=== PATIENT | female | born 1995 | race Caucasian/White ===

== ENCOUNTER 2020-07-22 12:37 | Emergency (ER) | payer OTHER, BC ==
[2020-07-22] MEDS ORDERED: NEURONTIN100 M1 (12:46)
[2020-07-22 13:04] LABS: BASO # 0.02 (0.02-0.10); EOS # 0.17 (0.04-0.40); EOS % 1.5 % (1.0-5.0); HEMATOCRIT 40.6 % (37.0-47.0); HEMOGLOBIN 13.2 g/dL (12.5-16.0); LYMPH# 1.87 (1.50-4.00); MEAN CELL VOLUME 82 fl (78-100); MEAN CORPUSCULAR HEMOGLOBIN 27 pg (27-31); MEAN CORPUSCULAR HGB CONC 33 g/dL (33-37); MEAN PLATELET VOLUME 11.1 fl (7.4-10.4); NEU # 8.42 (1.40-6.50); PLATELET COUNT 300 K/mm3 (130-400); RED BLOOD COUNT 4.97 M/mm3 (4.10-5.30); RED CELL DISTRIBUTION WIDTH 13.4 % (11.5-14.5); WHITE BLOOD COUNT 11.2 K/mm3 (4.8-10.8)
[2020-07-22 13:31] LABS: ALBUMIN 4.1 g/dL (3.5-5.0); SODIUM 140 mmol/L (136-145)
[2020-07-22 13:32] LABS: CALCIUM 9.1 mg/dL (8.3-10.5)
[2020-07-22 13:33] LABS: GLUCOSE 95 mg/dL (65-105); TOTAL PROTEIN 7.1 g/dL (6.4-8.3)
[2020-07-22 13:34] LABS: CARBON DIOXIDE 21 mmol/L (22-29)
[2020-07-22 13:35] LABS: TOTAL BILIRUBIN 0.4 mg/dL (0.2-1.2)
[2020-07-22 13:38] LABS: AST-SGOT 13 U/L (5-34)
[2020-07-22 13:40] LABS: ALT/SGPT 12 U/L (0-55)
[2020-07-22 13:43] LABS: ALCOHOL IN-HOUSE < 10 mg/dL (<10)
[2020-07-22 14:13] LABS: URINE APPEARANCE CLEAR; URINE COLOR YELLOW; URINE PROTEIN(semi-quant) NEGATIVE (NEGATIVE)
[2020-07-22 14:14] LABS: URINE BILIRUBIN NEGATIVE (NEGATIVE); URINE BLOOD NEGATIVE (NEGATIVE); URINE GLUCOSE NEGATIVE (NEGATIVE); URINE KETONE SMALL (NEGATIVE); URINE LEUKOCYTE ESTERASE NEGATIVE (NEGATIVE); URINE NITRATE NEGATIVE (NEGATIVE); URINE UROBILINOGEN NORMAL (NORMAL); URINE WBC 0-1 /hpf (0-3)
[2020-07-22] MEDS ORDERED: CYCLOBENZAPRINE10 M1 PO (14:37)
[2020-07-22 15:08] VITALS: BP 110/85
== END 2020-07-22 15:18 | disposition home or self-care (01) ==
LOC: ED 12:37
PROVIDERS: Nurse Practitioner
DX: M54.2 Cervicalgia (principal); Z32.02 Encounter for pregnancy test, result negative; V43.52XA Car driver injured in collision with other type car in traffic accident, initial encounter; W22.11XA Striking against or struck by driver side automobile airbag, initial encounter; Y92.411 Interstate highway as the place of occurrence of the external cause
CPT/HCPCS: 90715; J1885; J2405; J3010; J7030; Q9967